=== PATIENT | male | born 1945 | race Caucasian/White ===

== ENCOUNTER → 2018-02-20 09:26 | Outpatient (CLI) | payer MEDICARE, BC, SELFPAY ==
[2018-02-20 11:10] LABS: Absolute Basophil Count 0.02 k/cumm (0.0-0.2); Absolute Eosinophil Count 0.15 k/cumm (0.0-0.7); Absolute Lymphocyte Count 1.87 k/cumm (1.2-3.4); Absolute Monocyte Count 0.62 k/cumm (0.11-0.7); Absolute Neutrophil Count 2.49 k/cumm (1.2-6.7); Basophils % 0.4; Eosinophils % 2.9; HCT 41.9 % (40.0-50.0); HGB 14.1 g/dL (13.5-17.5); Lymphocytes % 36.3; Mean Corp. HGB Concentration 33.7 g/dL (32.0-36.0); Mean Corpuscular Hemoglobin 32.3 pg (27.0-33.0); Mean Corpuscular Volume 95.9 fL (80-95); Mean Platelet Volume 10.6 fL (8.0-11.0); Neutrophils % 48.4; Platelet Count 235 x1000/uL (130-400); RBC 4.37 m/cumm (4.50-6.00); RBC Distribution Width 12.6 % (11.8-14.1); White Blood Cell Count 5.15 k/cumm (4.4-10.8)
[2018-02-20 11:33] LABS: TSH (W/Ref FT4) 1.86 uIU/mL (0.358-3.74)
== END ==
PROVIDERS: PCP Nurse Practitioner Family; Visit Provider Nurse Practitioner Family
DX: R53.83 Other fatigue (principal)
CPT/HCPCS: 36415; 84443; 85025

== ENCOUNTER 2018-10-06 01:55 | Outpatient (CLI) | payer MEDICARE, BC, SELFPAY ==
[2018-10-06 09:56] LABS: ALT 23 U/L (12-78); AST 14 U/L (15-37); Albumin 4.1 g/dL (3.4-5.0); Alkaline Phosphatase 63 U/L (46-116); BUN 17 mg/dL (7-18); Bilirubin, Total 0.8 mg/dL (0.2-1.0); CREATININE 0.97 mg/dL (0.70-1.30); Calcium 9.4 mg/dL (8.5-10.1); Chloride 102 mmol/L (98-107); Cholesterol 227 mg/dL (50-200); Glucose 94 mg/dL (70-100); HDL Cholesterol 54 mg/dL (40-60); LDL CHOLESTEROL 153 mg/dL (<100); Potassium 4.3 mmol/L (3.5-5.1); Sodium 139 mmol/L (136-145); Triglyceride 57 mg/dL (30-150)
[2018-10-06 10:51] LABS: Hemoglobin A1C 5.8 % (4.5-6.2)
== END 2018-10-06 02:15 ==
PROVIDERS: PCP Nurse Practitioner Family; Visit Provider Nurse Practitioner Family
DX: E78.5 Hyperlipidemia, unspecified (principal); I10 Essential (primary) hypertension; R79.89 Other specified abnormal findings of blood chemistry
CPT/HCPCS: 36415; 80053; 80061; 83721; 83036

== ENCOUNTER → 2018-12-22 09:16 | Outpatient (BNVA) | payer MEDICARE, BC, SELFPAY | PROVIDERS: PCP Nurse Practitioner Family; Referring Provider Nurse Practitioner Family; Visit Provider Psychiatry & Neurology Neurology | DX: G20 Parkinson's disease (principal); R41.3 Other amnesia; R53.83 Other fatigue; I10 Essential (primary) hypertension | CPT/HCPCS: 99205; 99215 ==

== ENCOUNTER 2019-01-04 01:27 | Outpatient (CLI) | payer MEDICARE, BC, SELFPAY ==
--- NOTE | 2019-01-04 13:38 | DI.MRI_ITS ---
SYMPTOMS/DIAGNOSIS: NEW PARKINSON'S DISEASE WITH MEMORY LOSS, G20 MRI OF THE BRAIN: Comparison is made with head CT dated January,. T2 sagittal, T1, T2, FLAIR, diffusion and gradient-echo axial sequences were performed. There is mild diffuse atrophy. No acute hemorrhage, infarct or mass is seen. There are multiple scattered high signal foci in the white matter, which could be secondary to chronic microvascular ischemia. The ventricles are normal in size. The vascular flow voids appear intact. The orbits and sinuses are unremarkable. IMPRESSION: Atrophy and white matter changes of small vessel disease. No acute abnormality.
== END 2019-01-04 01:47 ==
PROVIDERS: PCP Nurse Practitioner Family; Visit Provider Psychiatry & Neurology Neurology
DX: G20 Parkinson's disease (principal); R41.3 Other amnesia; R90.82 White matter disease, unspecified; G31.1 Senile degeneration of brain, not elsewhere classified
CPT/HCPCS: 70551

== ENCOUNTER → 2019-02-01 12:39 | Outpatient (BNVA) | payer MEDICARE, BC, SELFPAY | PROVIDERS: PCP Nurse Practitioner Family; Visit Provider Psychiatry & Neurology Neurology | DX: G20 Parkinson's disease (principal); R41.3 Other amnesia; R53.83 Other fatigue; I10 Essential (primary) hypertension | CPT/HCPCS: 99214 ==

== ENCOUNTER 2019-03-09 00:42 | Outpatient (CLI) | payer MEDICARE, BC, SELFPAY ==
--- NOTE | 2019-03-09 07:39 | DI.US_ITS ---
SYMPTOM/DIAGNOSIS: RT GROIN SWELLING R10.31 RUQ PAIN R19.09 SCROTAL ULTRASOUND: The testicles are normal in size and show normal blood flow and echogenicity. There are small bilateral hydroceles. There is a 9 mm spermatocele in the left epididymal head. No masses are seen. There is a hernia demonstrated in the right inguinal canal, more apparent with eboni Steve. IMPRESSION: Small right inguinal hernia which appears reducible. Small bilateral hydroceles.
== END 2019-03-09 01:02 ==
PROVIDERS: PCP Nurse Practitioner Family; Visit Provider Nurse Practitioner Family
DX: R10.31 Right lower quadrant pain (principal); R10.11 Right upper quadrant pain; N43.2 Other hydrocele; K40.90 Unilateral inguinal hernia, without obstruction or gangrene, not specified as recurrent
CPT/HCPCS: 76870

== ENCOUNTER → 2019-03-24 10:40 | Outpatient (BNVA) | payer MEDICARE, BC, SELFPAY | PROVIDERS: PCP Nurse Practitioner Family; Visit Provider Psychiatry & Neurology Neurology | DX: G20 Parkinson's disease (principal); R41.3 Other amnesia; R53.83 Other fatigue; I10 Essential (primary) hypertension | CPT/HCPCS: 99354 ==

== ENCOUNTER 2019-05-17 13:00 | Outpatient (CLI) | payer MEDICARE, BC, SELFPAY ==
--- NOTE | 2019-05-17 12:00 | DI.RAD_ITS ---
EXAM: XR RIBS RT W PA LAT CHEST INDICATION: RIB PAIN ON RT SIDE, R07.81 PLEURODYNIA. COMPARISON: No exams were available for comparison TECHNIQUE: 2D digital imaging was performed. FINDINGS: The heart size is normal. The aorta is tortuous but normal in diameter. The lungs appear clear. No pneumothorax, infiltrate or effusion is seen. There are degenerative changes in the right shoulder. No rib or spine fractures are seen. IMPRESSION: Negative chest and right ribs.
== END 2019-05-17 13:20 ==
PROVIDERS: PCP Nurse Practitioner Family; Visit Provider Family Medicine
DX: R07.81 Pleurodynia (principal)
CPT/HCPCS: 71046; 71100

== ENCOUNTER 2019-05-20 14:13 | Outpatient (CLI) | payer MEDICARE, BC, SELFPAY ==
[2019-05-20 14:45] LABS: Absolute Basophil Count 0.01 k/cumm (0.0-0.2); Absolute Eosinophil Count 0.07 k/cumm (0.0-0.7); Absolute Lymphocyte Count 1.73 k/cumm (1.2-3.4); Absolute Monocyte Count 0.65 k/cumm (0.11-0.7); Absolute Neutrophil Count 3.17 k/cumm (1.2-6.7); Basophils % 0.2; Eosinophils % 1.2; HCT 40.2 % (40.0-50.0); HGB 13.3 g/dL (13.5-17.5); Lymphocytes % 30.7; Mean Corp. HGB Concentration 33.1 g/dL (32.0-36.0); Mean Corpuscular Hemoglobin 32.8 pg (27.0-33.0); Mean Corpuscular Volume 99.3 fL (80-95); Mean Platelet Volume 10.2 fL (8.0-11.0); Monocytes % 11.5; Neutrophils % 56.4; Platelet Count 271 x1000/uL (130-400); RBC 4.05 m/cumm (4.50-6.00); RBC Distribution Width 12.8 % (11.8-14.1); White Blood Cell Count 5.63 k/cumm (4.4-10.8)
[2019-05-20 16:33] LABS: ALT 14 U/L (16-63); AST 13 U/L (15-37); Albumin 4.1 g/dL (3.4-5.0); Alkaline Phosphatase 65 U/L (46-116); Anion Gap 6.9 mmol/L (3-11); BUN 15 mg/dL (7-18); Bilirubin, Total 0.6 mg/dL (0.2-1.0); CO2 30.1 mmol/L (21.0-32.0); CREATININE 0.92 mg/dL (0.70-1.30); Calcium 8.8 mg/dL (8.5-10.1); Chloride 102 mmol/L (98-107); Glucose 95 mg/dL (70-100); Potassium 3.9 mmol/L (3.5-5.1); Sodium 139 mmol/L (136-145); Total Protein 6.8 g/dL (6.4-8.2)
== END 2019-05-20 14:33 ==
PROVIDERS: PCP Nurse Practitioner Family; Visit Provider Nurse Practitioner Family
DX: R10.10 Upper abdominal pain, unspecified (principal)
CPT/HCPCS: 36415; 80053; 85025

== ENCOUNTER 2019-05-31 01:21 | Outpatient (CLI) | payer MEDICARE, BC, SELFPAY ==
--- NOTE | 2019-05-31 07:58 | DI.CT_ITS ---
EXAM: CT ABDOMEN W CLINICAL HISTORY: LUQ ABD PAIN, R19.02,R10.12, QUESTIONABLE MASS TECHNIQUE: The exam was performed according to the usual protocol with 100 cc's of Omnipaque 350 and oral contrast. COMPARISON: XR RIBS RT W PA LAT CHEST from 05/17/2019 FINDINGS: Images were performed from the lung bases through the aortic bifurcation after IV and oral contrast. Lung bases are clear. The liver, gallbladder, spleen, pancreas, adrenals and left kidney are unremark able. A small cyst is noted in the mid right kidney. There are no stones or hydronephrosis. There is a large quantity of stool seen throughout the visualized portions of the colon. There is no small bow el dilatation. The appendix is visible and appears normal. The aorta shows calcification but no evide nce of an aneurysm. There is no evidence of a mass or adenopathy. There is a slight compression of T1 2 which appears unchanged from chest x-ray of 17 May 2019. IMPRESSION: Large quantity of stool seen throughout the visualized portions of the colon. No evidence of mass o r small bowel dilatation.
[2019-05-31] MEDS: Breeza Beverage 473 ML BTL PO (09:04)
[2019-05-31] MEDS: Omnipaque 350 MG/ML 50 ML BTL PO (09:04)
[2019-05-31] MEDS: Omnipaque 350 MG/ML 100 ML BTL IV (09:05)
== END 2019-05-31 01:41 ==
PROVIDERS: PCP Nurse Practitioner Family; Visit Provider Nurse Practitioner Family
DX: R10.12 Left upper quadrant pain (principal); R19.02 Left upper quadrant abdominal swelling, mass and lump; R63.4 Abnormal weight loss; K59.00 Constipation, unspecified
CPT/HCPCS: 74160; J3490; Q9967

== ENCOUNTER → 2019-06-23 09:35 | Outpatient (BNVA) | payer MEDICARE, BC, SELFPAY | PROVIDERS: PCP Nurse Practitioner Family; Referring Provider Nurse Practitioner Family; Visit Provider Psychiatry & Neurology Neurology | DX: R53.82 Chronic fatigue, unspecified (principal); I10 Essential (primary) hypertension; G20 Parkinson's disease | CPT/HCPCS: 99214 ==

== ENCOUNTER → 2019-09-15 08:19 | Outpatient (BNVA) | payer MEDICARE, BC, SELFPAY | PROVIDERS: PCP Nurse Practitioner Family; Referring Provider Nurse Practitioner Family; Visit Provider Psychiatry & Neurology Neurology | DX: G20 Parkinson's disease (principal); R41.3 Other amnesia; F41.8 Other specified anxiety disorders; R35.1 Nocturia | CPT/HCPCS: 99215 ==

== ENCOUNTER → 2019-11-22 13:27 | Outpatient (BNVA) | payer MEDICARE, BC, SELFPAY | PROVIDERS: PCP Nurse Practitioner Family; Referring Provider Nurse Practitioner Family; Visit Provider Nurse Practitioner Gerontology | DX: N40.1 Benign prostatic hyperplasia with lower urinary tract symptoms (principal); R35.1 Nocturia; N13.8 Other obstructive and reflux uropathy; G20 Parkinson's disease | CPT/HCPCS: 81003; 99204; 99215 ==

== ENCOUNTER 2019-11-30 03:14 | Outpatient (CLI) | payer MEDICARE, BC, SELFPAY ==
[2019-11-30 12:58] LABS: Abs Immature Grans 0.01 k/cumm (0.0-0.09); Absolute Basophil Count 0.01 k/cumm (0.0-0.2); Absolute Eosinophil Count 0.08 k/cumm (0.0-0.7); Absolute Lymphocyte Count 1.28 k/cumm (1.2-3.4); Absolute Monocyte Count 0.41 k/cumm (0.11-0.7); Absolute Neutrophil Count 2.72 k/cumm (1.2-6.7); Basophils % 0.2; Eosinophils % 1.8; HCT 37.3 % (40.0-50.0); HGB 12.8 g/dL (13.5-17.5); Immature Grans % 0.2 %; Lymphocytes % 28.4; Mean Corp. HGB Concentration 34.3 g/dL (32.0-36.0); Mean Corpuscular Hemoglobin 33.7 pg (27.0-33.0); Mean Corpuscular Volume 98.2 fL (80-95); Monocytes % 9.1; Neutrophils % 60.3; Platelet Count 233 x1000/uL (130-400); RBC Distribution Width 12.4 % (11.8-14.1); White Blood Cell Count 4.51 k/cumm (4.4-10.8)
[2019-11-30 13:44] LABS: Hemoglobin A1C 5.6 % (3.8-5.6)
[2019-11-30 14:08] LABS: ALT 13 U/L (16-63); AST 14 U/L (15-37); Albumin 3.9 g/dL (3.4-5.0); Alkaline Phosphatase 56 U/L (46-116); Anion Gap 7.4 mmol/L (3-11); BUN 11 mg/dL (7-18); Bilirubin, Total 0.6 mg/dL (0.2-1.0); CO2 26.6 mmol/L (21.0-32.0); CREATININE 0.85 mg/dL (0.70-1.30); Calcium 8.8 mg/dL (8.5-10.1); Chloride 99 mmol/L (98-107); FREE T4 0.96 ng/dL (0.76-1.46); Glucose 109 mg/dL (74-106); Potassium 3.9 mmol/L (3.5-5.1); Sodium 133 mmol/L (136-145); TSH 0.96 uIU/mL (0.36-3.74); Total Protein 6.4 g/dL (6.4-8.2)
[2019-11-30 14:19] LABS: Calculated LDL 123 mg/dL (<100); Cholesterol 199 mg/dL (<200); HDL Cholesterol 69 mg/dL (40-60); Triglyceride 36 mg/dL (<150)
[2019-11-30 14:23] LABS: Vitamin B12 934 pg/mL (193-986)
[2019-12-01 10:58] LABS: PSA, Screening 1.2 ng/mL (0.0-6.5)
[2019-12-02 10:27] LABS: Folate 7.9 ng/mL (See Note)
== END 2019-11-30 03:34 ==
PROVIDERS: Nurse Practitioner Gerontology; PCP Nurse Practitioner Family; Visit Provider Nurse Practitioner Family
DX: R63.4 Abnormal weight loss (principal); E53.8 Deficiency of other specified B group vitamins; R73.03 Prediabetes; R35.1 Nocturia; Z12.5 Encounter for screening for malignant neoplasm of prostate
CPT/HCPCS: 36415; 80053; 80061; 84153; 82607; 82746; 83036; 84439; 84443; 85025

== ENCOUNTER → 2020-02-14 14:02 | Outpatient (BNVA) | payer MEDICARE, BC, SELFPAY | PROVIDERS: PCP Nurse Practitioner Family; Referring Provider Nurse Practitioner Family; Visit Provider Nurse Practitioner Gerontology | DX: N40.1 Benign prostatic hyperplasia with lower urinary tract symptoms (principal); N13.8 Other obstructive and reflux uropathy; I10 Essential (primary) hypertension; G20 Parkinson's disease | CPT/HCPCS: 99213 ==

== ENCOUNTER → 2020-02-16 08:50 | Outpatient (BNVA) | payer MEDICARE, BC, SELFPAY | PROVIDERS: PCP Nurse Practitioner Family; Referring Provider Nurse Practitioner Family; Visit Provider Psychiatry & Neurology Neurology | DX: G20 Parkinson's disease (principal); R41.3 Other amnesia; F32.9 Major depressive disorder, single episode, unspecified | CPT/HCPCS: 99215 ==

== ENCOUNTER → 2020-03-10 10:27 | Outpatient (BNVA) | payer MEDICARE, BC, SELFPAY | PROVIDERS: PCP Nurse Practitioner Family; Referring Provider Dermatology; Visit Provider Surgery | DX: C43.9 Malignant melanoma of skin, unspecified (principal); I10 Essential (primary) hypertension; G20 Parkinson's disease | CPT/HCPCS: 99202; 99214 ==

== ENCOUNTER 2020-03-22 09:08 | Day surgery (SDC) | payer MEDICARE, BC, SELFPAY ==
--- NOTE | 2020-03-22 06:56 | ROE_ITS ---
Date of service: 03/22/20 Time of Service: 10:30 Operative Note Operative Note DATE OF PROCEDURE: 03/22/20 PRE-OP DIAGNOSIS: Melanoma in situ of left forearm POST-OP DIAGNOSIS: same PROCEDURE: Wide local excision of left forearm melanoma SURGEON: Julieta Felder DIRECTOR PATIENT FINANCIAL SERVICES: Magali Vences ANESTHESIA: local (0.5% Marcaine mixed 50/50 with 1% Lidocaine) ESTIMATED BLOOD LOSS: 3 PATHOLOGY: other (skin lesion measuring 3 cm x 6 cm) COMPLICATIONS: None Patient was transported to: same day Patient's condition: stable Indications: 75 year old male with a < 2 cm Melanoma in situ of the left forearm. Per NCCN guidelines patient should undergo wide local excision Surgical procedure explained. Patient agreeable to just having local Procedure Description: After informed consent was obtained the patient was taken to the Operating room and placed in a supine position. His left arm was placed on an arm table. Monitors were applied and a BP was done. The skin was then prepped and draped in a sterile surgical fashion. The lesion was measured at 1 cm. An elliptical incision was drawn around the lesion with 1 cm margins on either side. Next the skin and subcutaneous tissue was infiltrated with the above anesthetic mixture. Next an incision was made around the melanoma with a 15 blade. Dissection was done with Cautery down to the subcutaneous fat. Once the skin was completely excised it was marked with a proline suture superiorly. The wound was irrigated with some saline. Bleeding was stopped using cautery. There was some tension noted when the skin edges were approximated. Skin flaps were created circumferentially. There was less tension when the skin edges were approximated. At this point the subcutaneous tissue was re-approximated with 3- 0 Vicryl interrupted sutures. The dermis was closed with interrupted, vertical mattress stitch with 4-0 Proline suture. Skin was cleaned and dried and steri- strips was applied. 4x4 were placed over the steri-strips and gently secured with COBAN. The patient tolerated the procedure well and there were no immediate complications. Needle counts were correct at the end of the case.
--- NOTE | 2020-03-22 07:00 | PDOC.DSDIS_ITS ---
Discharge Plan Disposition Patient Disposition: HOME Condition: Good Discharge Details Reason For Visit: Melanoma Left Forearm Attending Provider: Julieta Felder Primary Care Provider: Venice Crouch Home Meds and New Rx's Prescriptions: Continued carbidopa-levodopa [Sinemet] 25-100 mg tablet 1 tab PO TID Qty: 270 RF: 3 tamsulosin [Flomax] 0.4 mg capsule 0.4 mg PO DAILY Qty: 90 RF: 3 folic acid 1 mg tablet 1 mg PO DAILY RF: 0 Metamucil 3.4 gram/5.4 gram powder 1 tbs PO DAILY RF: 0 aspirin [Aspirin Low-Strength] 81 MG tablet,chewable 81 mg PO DAILY RF: 0 red yeast rice 600 MG capsule 600 mg PO DAILY RF: 0 cyanocobalamin (vitamin B-12) 2,500 MCG tablet 1,000 mcg PO DAILY RF: 0 docusate sodium [Colace] 100 MG capsule 100 mg PO QOtherDay RF: 0 epinephrine 0.3 mg/0.3 mL auto-injector 0.3 mg IM ONCE PRN (Reason: bee sting allergy) Qty: 2 RF: 2 Discharge Instructions Additional Instructions: Activity at Home after surgery: As Tolerated Diet, Nutrition, & wound healing: Healthy diet Pain Medications: 1. Tylenol 650 mg every 6 hours as needed and Ibuprofen 600 mg every 6 hours as tolerated. May alternate between the two medications every 3 hours 2. If a narcotic has been prescribed take as directed only for breakthrough pain For Constipation: 1. Take Milk of Magnesia or MiraLax as needed for constipation Other: 1. You may shower tomorrow. Do not scrub the incisions. You can leave it open to air or cover if you like. 2. Do not soak the incisions for 1 week 3. You may alternate ice and heat as needed for pain and swelling Wound Care: 1. Keep the incisions clean and dry Please call our office if you develop: 1. Fevers >101.5 2. Nausea or Vomiting 3. Worsening pain 4. Redness and thick discharge from the wounds If after hours please call the Hospital at and ask to speak to the on-call surgeon Referrals: Julieta Felder MD [ [facility] STAFF PHYSICIAN] - 03/31/20 2:00 pm Activity:: Activity as Tolerated Diet:: As Tolerated Discharge Orders Discharge Orders: Discharge Order (Routine); Ordered 03/22/20 Ordered By: Julieta Felder
[2020-03-22 09:22] VITALS: BP 160/75; PULSE 58; RESP 18; TEMP 36.2; O2SAT 100
[2020-03-22] MEDS: Lidocaine 1% Multi-Dose 50 ML VIAL (10:05)
--- NOTE | 2020-03-22 10:10 | SKI_PTH ---
PATIENT: Yousif Morris Sr LOC: [facility] U#:[id number] AGE/SX: 75/M ROOM: RE03/22/[address]: Julieta Felder MD : 1945 BED: DIS: 03/22/2020 SPEC #: [id number] RECD: 03/22/20 12:49 STATUS: SHASHANK REQ #: [id number] KAYLAN: 03/22/20 10:[address]: Julieta Felder DEPT: Surgical Specimen RECD BY: Katiuska Tobin ENTERED: 03/22/20 12:50 SP TYPE: BECCA SOSA DR: JOAO Quiroz Tissues: 1 - SKIN CYST/TAG/DEBRIDEMENT Procedures: SKIN LEVEL 4 Comments: [id number]
== END 2020-03-22 10:52 | disposition home or self-care (01) ==
LOC: SUR 09:08
PROVIDERS: PCP Nurse Practitioner Family; Visit Provider Surgery
PROC: (CPT 11606; principal; 2020-03-22 10:15)
DX: D03.62 Melanoma in situ of left upper limb, including shoulder (principal)
CPT/HCPCS: 11606; 12032; 88304; 88305

== ENCOUNTER → 2020-03-31 09:12 | Outpatient (BNVA) | payer MEDICARE, BC, SELFPAY | PROVIDERS: PCP Nurse Practitioner Family; Referring Provider Nurse Practitioner Family; Visit Provider Physical Therapy Assistant | DX: Z48.817 Encounter for surgical aftercare following surgery on the skin and subcutaneous tissue (principal); D03.62 Melanoma in situ of left upper limb, including shoulder; I10 Essential (primary) hypertension; G20 Parkinson's disease ==

== ENCOUNTER 2020-04-14 03:04 | Outpatient (CLI) | payer MEDICARE, BC, SELFPAY ==
[2020-04-14 08:57] LABS: Abs Immature Grans 0.03 10^3/uL (0.0-0.06); Absolute Basophil Count 0.03 10^3/uL (0.0-0.2); Absolute Eosinophil Count 0.27 10^3/uL (0.0-0.7); Absolute Lymphocyte Count 1.84 10^3/uL (1.2-3.4); Absolute Monocyte Count 0.65 10^3/uL (0.1-0.8); Absolute Neutrophil Count 2.76 10^3/uL (1.2-6.7); Basophils % 0.5; Eosinophils % 4.8; HCT 40.2 % (40.0-50.0); HGB 13.3 g/dL (13.5-17.5); Immature Grans % 0.5; MCH 33.2 pg (27.0-33.0); MCHC 33.1 % (32.0-36.0); MCV 100.2 fL (80-95); MPV 10.3 fL (8.0-11.0); Monocytes % 11.6; Neutrophils % 49.6; Nucleated RBC 0 %; Platelet Count 244 10^3/uL (130-400); RBC 4.01 10^6/uL (4.36-5.78); RDW 12.5 % (11.8-14.1); RDW-SD 46.5 fL; WBC 5.58 10^3/uL (4.4-10.8)
[2020-04-14 09:37] LABS: Anion Gap 6.6 mmol/L (3-11); BUN 13 mg/dL (7-18); CO2 28.4 mmol/L (21.0-32.0); CREATININE 0.91 mg/dL (0.70-1.30); Chloride 102 mmol/L (98-107); Glucose 92 mg/dL (74-106); Potassium 4.2 mmol/L (3.5-5.1); Sodium 137 mmol/L (136-145)
== END 2020-04-14 03:24 ==
PROVIDERS: PCP Nurse Practitioner Family; Visit Provider Nurse Practitioner Family
DX: D53.9 Nutritional anemia, unspecified (principal); E87.1 Hypo-osmolality and hyponatremia
CPT/HCPCS: 36415; 80048; 85025

== ENCOUNTER 2020-04-14 20:26 | Emergency (ER) | payer MEDICARE, BC, SELFPAY ==
[2020-04-14 20:31] VITALS: BP 175/70; PULSE 78; RESP 20; TEMP 37.2; O2SAT 100
--- NOTE | 2020-04-14 20:57 | ED.GENADUL_ITS ---
Discharge Plan Disposition Patient Disposition: HOME Condition: Good Discharge Details Clinical Impression: Abdominal wall anomaly Primary Care Provider: Venice Crouch ED Provider: Igor Duque Meds and New Rx's Prescriptions: Continued carbidopa-levodopa [Sinemet] 25-100 mg tablet 1 tab PO TID Qty: 270 RF: 3 tamsulosin [Flomax] 0.4 mg capsule 0.4 mg PO DAILY Qty: 90 RF: 3 folic acid 1 mg tablet 1 mg PO DAILY RF: 0 Metamucil 3.4 gram/5.4 gram powder 1 tbs PO DAILY RF: 0 aspirin [Aspirin Low-Strength] 81 MG tablet,chewable 81 mg PO DAILY RF: 0 red yeast rice 600 MG capsule 600 mg PO DAILY RF: 0 cyanocobalamin (vitamin B-12) 2,500 MCG tablet 1,000 mcg PO DAILY RF: 0 docusate sodium [Colace] 100 MG capsule 100 mg PO QOtherDay RF: 0 epinephrine 0.3 mg/0.3 mL auto-injector 0.3 mg IM ONCE PRN (Reason: bee sting allergy) Qty: 2 RF: 2 Discharge Instructions Care Plan Goals: Urinalysis, laboratory studies, CT scan unremarkable. Try using heat in the future for recurrent spasm. Follow-up with primary care next week if continued problems. Return to ED for abdominal pain, fever, persistent vomiting. Referrals: Venice Crouch, [employer] [Primary Care Provider] - Medical Decision Making Patient had CBC and BMP this morning per primary care. These results are unremarkable. His abdomen is completely benign at this point. No spasm or firmness appreciated. No abdominal wall hernia appreciated. Some tenderness in the right flank. reports that her rarely complains. She also reports that he has some mild cognitive problems related to his Parkinson's disease. Patient reports no spasm or problems with of the muscles. I will go ahead and get abdominal labs and urine. I will also scan his abdomen. I don't think he is describing obstruction and peristalsis type symptoms as he seems to think it is definitely abdominal wall, but will scan to be sure. Patient urine is negative for signs of infection or blood. LFTs and lipase are fine. Lactic acid fine. CT scan of the abdomen pelvis shows large amount of stool throughout the colon otherwise no acute pathology. Specifically no obstruction. Findings discussed with patient and . The does sound like abdominal wall/rectus muscle spasm at this point. Recommend heat if significant spasm to help relax the muscle. Follow-up with primary care next week if continued problems. Return to ED for abdominal pain, vomiting, fever. Medical Records Medical records reviewed: Yes I reviewed the patient's medical records. Lab Data Lab results reviewed: Yes I reviewed the patient's lab results. HPI General Mode of arrival: ambulatory . Date/Time Provider Initiated Documentation: 04/14/20 20:57 . Limitations to Documentation: no limitations . Information obtained by: patient, family, RN notes reviewed and old records reviewed . HPI Narrative: Patient presenting to ED with complaint of anterior abdominal wall spasm and firmness. Patient denies abdominal pain per se. Occasional nausea but no vomiting or diarrhea. No chest pain or pressure. Reports waves of spasm and tightening in the rectus muscles that start inferiorly and roll superiorly. States he has had butterfly spasms like this for a little while now. Chalked it up to anxiety because if he concentrated it would go away. However last night and tonight he is actually having spasm does not necessarily painful but makes it hard for him to take a deep breath. He denies fever. He denies urinary symptoms. He does note that he has experienced some right flank pain recently. Related Data Home Medications Medication Instructions Recorded Confirmed aspirin [Aspirin Low-Strength] 81 mg PO DAILY tab-cap 07/23/13 04/14/20 red yeast rice 600 mg PO DAILY 07/23/13 04/14/20 cyanocobalamin (vitamin B-12) 1,000 mcg PO DAILY 05/13/17 04/14/20 docusate sodium [Colace] 100 mg PO QOtherDay tab-cap 08/18/17 04/14/20 epinephrine 0.3 mg/0.3 mL 0.3 mg IM ONCE PRN #2 each 10/26/18 04/14/20 injection, auto-injector psyllium husk 3.4 gram/5.4 gram 1 tbs PO DAILY 06/23/19 04/14/20 oral powder folic acid 1 mg tablet 1 mg PO DAILY 02/03/20 04/14/20 tamsulosin 0.4 mg capsule 0.4 mg PO DAILY #90 cap 02/14/20 04/14/20 carbidopa 25 mg-levodopa 100 mg 1 tab PO TID #270 tab 02/16/20 04/14/20 tablet Previous Rx's Medication Instructions Recorded epinephrine 0.3 mg/0.3 mL 0.3 mg IM ONCE PRN #2 each 10/26/18 injection, auto-injector tamsulosin 0.4 mg capsule 0.4 mg PO DAILY #90 cap 02/14/20 carbidopa 25 mg-levodopa 100 mg 1 tab PO TID #270 tab 02/16/20 tablet Allergies Allergy/AdvReac Type Severity Reaction Status Date / Time Hymenoptera Allergy Unknown Uncoded 04/14/20 20:41 Yellow hornet Allergy Unknown Uncoded 04/14/20 20:41 General Stated Complaint: Abd Prob RANULFO: 3 Review of Systems Narrative: As documented in HPI otherwise negative as below. Const: no fever, chills, weakness Resp: no cough, SOB, pleuritic pain CV: no CP, diaphoresis, edema, syncope GI: no abdominal pain, vomiting, diarrhea Neuro: no headache, numbness, focal weakness, confusion PFSH Medical History Basal cell carcinoma of right hand Chilblains Depressive disorder Onset after daughter's in 2014 Essential hypertension Gastritis GERD with esophagitis Globus sensation Hyperlipidemia Insomnia Macrocytic anemia Mild, [place] [facility] [place], no bone marrow biopsy needed Melanoma in situ Left forearm Oropharyngeal dysphagia [facility] consulted Fall 2018 Parkinson's disease Prediabetes Surgical History History of esophagogastroduodenoscopy (EGD) (06/11/16) Hx of melanoma excision (03/22/20) S/P cataract surgery (06/16/17) OS 06/16/17, OD 06/30/17 S/P colonoscopy S/P right inguinal hernia repair (04/07/19) [place] [facility] [place]/P tonsillectomy S/P vasectomy Family History Mother , at 87 Essential hypertension Heart disease Hyperlipidemia Iritis Stroke Cardiomyopathy Father , at 75 Essential hypertension Heart disease Hyperlipidemia Stroke Alcohol abuse Substance abuse Brother Essential hypertension Hyperlipidemia Kidney stones Hyperthyroidism Son No problems noted. Daughter , at 46 of bran aneurysm Essential hypertension Hyperlipidemia MS (multiple sclerosis) Brain aneurysm Maternal Grandfather No problems noted. Maternal Grandmother No problems noted. Paternal Grandfather No problems noted. Paternal Grandmother No problems noted. Social History Smoking/Tobacco Use Status: Former Tobacco Use Quit Date: 07/14/89 Second Hand Exposure: Yes Alcohol Intake: current Alcohol Intake frequency: a few times a month Alcohol type: beer Drug use: Never Substance use type: does not use Caregiver/Support person: No Household members: spouse Communication Needs: None Do you need help understanding health information?: Often current occupation: Retired [employer] Pets and animals: Yes Pets and animals: cat(s) Sexually active: Yes Do you think of yourself as: straight/heterosexual What is your relationship status?: How often do you talk on the phone with friends or family?: never How often do you get together with friends or relatives?: once per week How often do you attend druze or temple services?: 4 or more times per year Do you belong to any clubs or organized social groups?: no Panel score (0-1 are the most socially isolated patients): 2 What type of physical activity do you participate in: other Details: Senior Exercise group Duration: 45-60 minutes/day Frequency: does not exercise Tiff/Worship: Buddhism Special tiff needs: No Seatbelt use: always Helmet use: Yes Helmet use: sometimes Drive intox or ride w/intox interstate bus driver: No Do you feel safe at home: Yes Do you feel safe in your relationship?: Yes Exam Narrative Exam Narrative: Vitals: Afebrile. Elevated blood pressure otherwise normal vitals and normal room air pulse ox. Const: WDWN elderly male in NAD. HEENT: NC/AT. Normal facial exam. Eyes: Normal conjunctiva and sclera. Neck: Supple. Trachea midline. Lungs: Normal respiratory effort. Cor: Good radial pulses. GI: Soft. NT/ND. No guarding or rebound. Back: No CVAT Mild point tenderness right flank area. Neuro: A+O x 3. Normal speech, mentation, gait. Cranial nerves II - XII grossly intact. No gross motor or sensory deficit. Ext: No C/C/E. Skin: Warm and dry without rash. Course Vital Signs Vital signs: Vital Signs Temperature 99.0 F 04/14/20 20:31 Pulse 78 04/14/20 20:31 Respiratory Rate 20 04/14/20 20:31 Blood Pressure 175/70 H 04/14/20 20:31 Pulse Oximetry 100 04/14/20 20:31 Temperature 99.0 F 04/14/20 20:31 Temperature Source Tympanic 04/14/20 20:31 Pulse 78 04/14/20 20:31 Respiratory Rate 20 04/14/20 20:31 Respiratory Effort 04/14/20 20:35 Blood Pressure 175/70 H 04/14/20 20:31 Pulse Oximetry 100 04/14/20 20:31 Oxygen Delivery Method Room Air 04/14/20 20:31 Oxygen Flow Rate 0 04/14/20 20:31 Pain Level 4 04/14/20 20:31
--- NOTE | 2020-04-14 21:00 | DI.CT_ITS ---
EXAM: CT ABDOMEN PELVIS W CLINICAL HISTORY: right flank pain/abdominal distension/firmness TECHNIQUE: COMPARISON: CT CT ABDOMEN W from 05/31/2019 FINDINGS: CT examination of the abdomen and pelvis was performed with bolus infusion of 100 cc of Omnipaque 350 . Images obtained through the lung bases are unremarkable. The liver and spleen appear normal. Gallbladder and bile ducts are unremarkable. Pancreas is unremarkable in appearance. Adrenals appear normal bilaterally. Kidneys appear normal with an incidental 13 millimeter right esau l cyst with no evidence of renal mass, hydronephrosis, or nephrolithiasis There is no evidence of abdominal or pelvic adenopathy. Abdominal aorta is of normal diameter and no major vascular abnormality is seen. Appendix is normal. No evidence diverticulitis or bowel obstruction. No significant abdominal wall hernia seen. Urinary bladder has a thickened wall. Prostate is mildly enlarged. Urinary bladder wall thickening may reflect chronic bladder outlet obstruction or cystitis. Please correlate clinically. Impression: Urinary bladder wall thickening, chronic bladder obstruction versus cystitis. Please correlate clini nigel. There is a large stool burden consistent with constipation. RADIATION DOSE DELIVERED: 863.4mGy.cm Total DLP 863.4mGy.cm Total DLP DATA REPOSITORY: All CT scans at this facility are submitted to the National Radiology Data Registry (NRDR) Dose Index Registry (DIR) with the [employer] (ACR). RADIATION OPTIMIZATION: All CT scans at this facility use at least one of these dose optimization te chniques: automated exposure control; mA and/or kV adjustment per patient size (includes targeted exa ms where dose is matched to clinical indication); or iterative reconstruction.
[2020-04-14 21:21] LABS: Lactate 1.1 mmol/L (0.6-1.4)
[2020-04-14] MEDS: Omnipaque 350 MG/ML 100 ML BTL IJ (21:28)
[2020-04-14] MEDS: Normal Saline - Diluent 50 ML VIAL IV (21:29)
[2020-04-14] MEDS: Normal Saline Flush 10 ML SYR IVP (21:30)
[2020-04-14 21:33] LABS: Bilirubin Negative (Negative); Blood Trace-intact (Negative); Clarity Clear (Clear); Glucose Negative (Negative); Ketones Negative (Negative); Leukocyte Esterase Negative (Negative); Nitrite Negative (Negative)
[2020-04-14 21:36] LABS: ALT 17 U/L (16-63); AST 14 U/L (15-37); Albumin 3.5 g/dL (3.4-5.0); Alkaline Phosphatase 55 U/L (46-116); Bilirubin, Total 0.4 mg/dL (0.2-1.0); Lipase 250 U/L (73-393); Total Protein 6.3 g/dL (6.4-8.2)
[2020-04-14 21:42] LABS: Bacteria Negative HPF (Negative); C & S Indicated? No; Crystals Negative HPF (Negative); Epithelial Cells Negative HPF (Negative); Mucus Negative (Negative); RBC 0-2 HPF (0-2); WBC 0-2 HPF (0-5)
--- NOTE | 2020-04-14 21:57 | DI.VRAD_ITS ---
PROCEDURE INFORMATION: Exam: CT Abdomen And Pelvis With Contrast Exam date and time: 04/14/2020 9:05 PM Age: 75 years old Clinical indication: Other: Right flank pain/abdominal distension/firmness TECHNIQUE: Imaging protocol: Computed tomography of the abdomen and pelvis with intravenous contrast. COMPARISON: CT ABDOMEN W 05/31/2019 8:38 AM FINDINGS: Liver: Unremarkable. No mass. Gallbladder and bile ducts: No calcified stones. No ductal dilation. Pancreas: Unremarkable. No ductal dilation. Spleen: Unremarkable. No splenomegaly. Adrenals: Unremarkable. No mass. Kidneys and ureters: Simple right renal cortical cyst, 1.3 cm in diameter. Stomach and bowel: Large amount of stool throughout the colon, cannot rule out constipation. Appendix: No evidence of appendicitis. Intraperitoneal space: No free air. No significant fluid collection. Vasculature: Coronary arterial calcifications. Atherosclerotic abdominal aorta and branches. Lymph nodes: No enlarged lymph nodes. Urinary bladder: Thickened wall of the urinary bladder, most prominent anteriorly. Reproductive: Enlarged prostate. Bones/joints: Mild degenerative changes within thoracic and lumbar spine. Soft tissues: Unremarkable. IMPRESSION: No evidence for mechanical bowel obstruction. No nephrolithiasis. No hydronephrosis or hydroureter. Large amount of stool throughout the colon, cannot rule out constipation. Dictated and Authenticated by: Dusty Guerra MD. Ordering:RICK Costa MD
[2020-04-14 22:37] VITALS: BP 155/76; PULSE 67; RESP 18; O2SAT 95
== END 2020-04-14 22:40 | disposition home or self-care (01) ==
PROVIDERS: Emergency Provider Emergency Medicine; PCP Nurse Practitioner Family
DX: M62.838 Other muscle spasm (principal); R10.11 Right upper quadrant pain; R11.0 Nausea; G20 Parkinson's disease; I10 Essential (primary) hypertension
CPT/HCPCS: 36415; 80048; 80076; 83690; 99285; 74177; 81003; 81015; 83605; 85025; 99284; J3490

== ENCOUNTER → 2020-08-17 12:52 | Outpatient (BNVA) | payer MEDICARE, BC, SELFPAY | PROVIDERS: PCP Nurse Practitioner Family; Referring Provider Nurse Practitioner Family; Visit Provider Psychiatry & Neurology Neurology | DX: G20 Parkinson's disease (principal); R41.3 Other amnesia; F41.9 Anxiety disorder, unspecified; R10.9 Unspecified abdominal pain | CPT/HCPCS: 99215 ==

== ENCOUNTER 2020-12-01 01:26 | Outpatient (CLI) | payer MEDICARE, BC, SELFPAY ==
[2020-12-01 12:23] LABS: Abs Immature Grans 0.01 10^3/uL (0.0-0.06); Absolute Basophil Count 0.03 10^3/uL (0.0-0.2); Absolute Eosinophil Count 0.14 10^3/uL (0.0-0.7); Absolute Lymphocyte Count 1.56 10^3/uL (1.2-3.4); Absolute Monocyte Count 0.57 10^3/uL (0.1-0.8); Absolute Neutrophil Count 3.32 10^3/uL (1.2-6.7); Basophils % 0.5; Eosinophils % 2.5; HCT 39.2 % (40.0-50.0); Immature Grans % 0.2; Lymphocytes % 27.7; MCH 33.8 pg (27.0-33.0); MCHC 33.2 % (32.0-36.0); MCV 101.8 fL (80-95); Monocytes % 10.1; Nucleated RBC 0 %; Platelet Count 224 10^3/uL (130-400); RBC 3.85 10^6/uL (4.36-5.78); RDW 12.7 % (11.8-14.1); RDW-SD 47.8 fL; WBC 5.63 10^3/uL (4.4-10.8)
[2020-12-01 12:44] LABS: Hemoglobin A1C 5.4 % (<5.7)
[2020-12-01 12:58] LABS: ALT 18 U/L (16-63); AST 15 U/L (15-37); Albumin 3.9 g/dL (3.4-5.0); Alkaline Phosphatase 60 U/L (46-116); Anion Gap 6.5 mmol/L (3-11); BUN 13 mg/dL (7-18); Bilirubin, Total 0.7 mg/dL (0.2-1.0); CO2 29.5 mmol/L (21.0-32.0); CREATININE 0.9 mg/dL (0.70-1.30); Calcium 8.9 mg/dL (8.5-10.1); Calculated LDL 132 mg/dL (<100); Chloride 104 mmol/L (98-107); Cholesterol 217 mg/dL (<200); Glucose 92 mg/dL (74-106); HDL Cholesterol 77 mg/dL (40-60); Potassium 4.2 mmol/L (3.5-5.1); Sodium 140 mmol/L (136-145); Total Protein 6.4 g/dL (6.4-8.2); Triglyceride 44 mg/dL (<150)
== END 2020-12-01 01:27 | disposition home or self-care (01) ==
PROVIDERS: PCP Nurse Practitioner Family; Visit Provider Nurse Practitioner Family
DX: I10 Essential (primary) hypertension (principal); E78.5 Hyperlipidemia, unspecified; R73.03 Prediabetes; D53.9 Nutritional anemia, unspecified
CPT/HCPCS: 36415; 80053; 80061; 83036; 85025

== ENCOUNTER → 2021-02-13 14:50 | Outpatient (BNVA) | payer MEDICARE, BC, SELFPAY | PROVIDERS: PCP Nurse Practitioner Family; Visit Provider Nurse Practitioner Gerontology | DX: N40.1 Benign prostatic hyperplasia with lower urinary tract symptoms (principal); N13.8 Other obstructive and reflux uropathy; K59.00 Constipation, unspecified | CPT/HCPCS: 99214 ==

== ENCOUNTER → 2021-02-19 10:49 | Outpatient (BNVA) | payer MEDICARE, BC, SELFPAY | PROVIDERS: PCP Nurse Practitioner Family; Referring Provider Nurse Practitioner Family; Visit Provider Psychiatry & Neurology Neurology | DX: G20 Parkinson's disease (principal); R41.3 Other amnesia; F41.9 Anxiety disorder, unspecified; R10.9 Unspecified abdominal pain | CPT/HCPCS: 99215 ==